=== PATIENT | male | born 1985 | race Two or more races ===

== ENCOUNTER 2024-02-22 10:20 | Emergency (ER) | payer OTHER ==
[~2024-02-22] VITALS: Ht 188 cm; Wt 109.8 kg
[2024-02-22] MEDS ORDERED: ACID REDUCER20 M1 (11:28)
[2024-02-22] MEDS ORDERED: XARELTO20 MG (11:28)
[2024-02-22] MEDS ORDERED: ORPHENADRINE CITRATE 100 MG TABLET PO ONE (13:00)
[2024-02-22] MEDS ORDERED: NORFLEX100MG PO (13:02)
== END 2024-02-22 13:11 | disposition home or self-care (01) ==
LOC: ER 10:22
DX: M62.838 Other muscle spasm (principal)